=== PATIENT | male | born 1950 | race Caucasian/White ===

== ENCOUNTER 2020-12-05 16:09 | Emergency (ER) | payer MEDICARE, OTHER, SELFPAY ==
--- NOTE | 2020-12-05 16:13 | ED.UPPEXIN ---
HPI - Extremity Injury (Upper) General Chief Complaint: Wound/Laceration Stated Complaint: lt hand middle finger pain Time Seen by Provider: 12/05/20 16:13 Source: patient and RN notes reviewed History of Present Illness HPI narrative: Patient is a 70-year-old male who presents the urgent care with complaints of red infected left middle finger. Patient states he noticed on Friday, got a manicure on Friday, and seems to have gotten worse. Patient states it is now more swollen and is affecting his work due to the pain . Patient denies any use of [id number] medication for pain. Patient denies of any other acute complaints. No acute distress noted. Patient aware of the plan of care. Some parts of this dictation were generated by voice recognition software and may contain typographical and/or grammatical inaccuracies. Related Data Allergies Allergy/AdvReac Type Severity Reaction Status Date / Time No Known Allergies Allergy Verified 12/05/20 16:23 Review of Systems Review of Systems: Narrative: CONSTITUTIONAL: Denies fever, chills, or sweats. EYES: Denies visual changes, redness, or discharge. ENT: Denies rhinorrhea, congestion, sore throat, or otalgia. CARDIOVASCULAR: Denies chest pain, palpitations, or edema. RESPIRATORY: Denies cough or dyspnea. GASTROINTESTINAL: Denies abdominal pain, nausea, vomiting, or diarrhea. GENITOURINARY: Denies dysuria or hematuria. SKIN: Reports of pain and swelling to the nailbed of the left middle finger MUSCULOSKELETAL: Denies back pain, joint pain, or myalgia. NEUROLOGIC: Denies headache, numbness, or weakness. All other systems reviewed are negative, except as documented in HPI. PMFSH Comments At the time of my signature, I reviewed and agree with the nursing past medical, surgical, social, and family history. There is no relevant family history pertinent to the patient complaint. Exam Narrative: Exam Narrative: GENERAL: This is a well-nourished, well-developed patient, in no apparent distress. HEAD: normocephalic, atraumatic. EYES: PERRL. Sclera clear/white. Vision is grossly intact. EARS: External ears normal NOSE: External nose normal with no obvious nasal discharge, nares without redness, no rhinorrhea. THROAT: Mucous membranes moist NECK: Neck supple SKIN: Very mild erythemic paronychia noted to the radial aspect of the left middle digit. NEURO: awake, alert, and oriented to person, place and time. There were no obvious focal neurologic abnormalities. EXTREMITIES: No clubbing, cyanosis, or edema. Course Vital Signs Vital signs: Vital Signs Temperature 98.5 F 12/05/20 16:19 Pulse Rate 68 12/05/20 16:19 Respiratory Rate 16 12/05/20 16:19 Blood Pressure 132/75 12/05/20 16:19 Pulse Oximetry 100 12/05/20 16:19 Temperature 98.5 F 12/05/20 16:19 Pulse Rate 68 12/05/20 16:19 Respiratory Rate 16 12/05/20 16:19 Blood Pressure 132/75 12/05/20 16:19 Pulse Oximetry 100 12/05/20 16:19 Reviewed MDM - Extremity Injury (Upper) MDM Narrative Medical decision making narrative: Advised the patient to complete oral antibiotic regimen as prescribed. Soak the finger in warm water or use a warm compress for comfort. May use Tylenol as needed for pain. Be sure to eat and drink with the medication. If the area does happen to open/drain?use [id number] triple antibiotic ointment such as Neosporin and a bandage. If you develop any increase in pain associated with swelling or streaking up the hand/finger?go to the ER. Follow-up with your PCP within 2 to 5 days or for worsening symptoms or failure to improve. Differential Diagnosis Differential diagnosis: Likely finger sprain and other (Ingrown fingernail, cellulitis) Critical Care Time Critical Care Time Critical Care Time: No Discharge Plan Discharge Clinical Impression: Paronychia of finger of left hand Patient Disposition: Home, Self-Care Condition: Stable Instructions: Antibiotic
[2020-12-05 16:19] VITALS: BP 132/75; PULSE 68; RESP 16; TEMP 36.9; O2SAT 100
== END 2020-12-05 16:36 | disposition home or self-care (01) ==
PROVIDERS: Emergency Provider Nurse Practitioner Family
DX: L03.012 Cellulitis of left finger (principal)
CPT/HCPCS: 99213; G0463

== ENCOUNTER 2020-12-09 15:38 | Emergency (ER) | payer MEDICARE, OTHER, SELFPAY ==
[2020-12-09 15:50] VITALS: BP 112/60; PULSE 68; RESP 16; TEMP 37; O2SAT 99
--- NOTE | 2020-12-09 16:14 | ED.SKABFB ---
HPI - Skin/Abscess/Foreign Bdy General Chief complaint: Extremity Problem,Nontraumatic Stated complaint: finger pain Source: patient Mode of arrival: ambulatory Limitations: no limitations History of Present Illness HPI narrative: Patient is here with increased pain, redness and swelling to left middle finger. Patient was seen approximately 2 days ago and diagnosed with a paronychia and started on doxycycline at this time. Patient reports that wound is having increased swelling, pain and appears to have yellow area surrounding nailbed without drainage. He denies all other complaints. MD complaint: other (Paronychia) Related Data Allergies Allergy/AdvReac Type Severity Reaction Status Date / Time No Known Allergies Allergy Verified 12/05/20 16:23 Review of Systems Review of Systems: Narrative: CONSTITUTIONAL: Denies fever, chills, or sweats. EYES: Denies visual changes, redness, or discharge. ENT: Denies rhinorrhea, congestion, sore throat, or otalgia. CARDIOVASCULAR: Denies chest pain, palpitations, or edema. RESPIRATORY: Denies cough or dyspnea. GASTROINTESTINAL: Denies abdominal pain, nausea, vomiting, or diarrhea. GENITOURINARY: Denies dysuria or hematuria. SKIN: Pain and swelling to left middle finger MUSCULOSKELETAL: Denies back pain, joint pain, or myalgia. NEUROLOGIC: Denies headache, numbness, dizziness, or weakness. PSYCHIATRIC: Denies anxiety or depression. [facility] Social History Social History (Updated 12/09/20 @ 17:10 by MARCUS Álvarez) Smoking status: Never smoker Alcohol intake: never Substance use: never Living arrangements: with family Occupation/Education: occupation Comments At the time of signature, I have reviewed and agree with nursing past medical, surgical, social, and family history unless otherwise noted. Please see nursing chart for further information. There is no relevant family history pertinent to the presenting complaint. Exam Narrative: Exam Narrative: GENERAL: Well-appearing, well-nourished, and in no acute distress. HEAD: Normocephalic, atraumatic. EYES: EOMI. No redness or drainage. Conjunctiva are normal. ENT: Mucous membranes pink and moist. Nares clear. No rhinorrhea. TMs normal bilaterally. Throat normal. Uvula midline. NECK: AROM. Supple. No lymphadenopathy. CHEST: No respiratory distress. Clear to auscultation. HEART: Regular rate and rhythm. No murmur appreciated. Normal peripheral pulses. GI: Soft, nontender without rebound, or guarding. No distention. Bowel sounds normal in all quadrants. MUSCULOSKELETAL: No bony tenderness. EXTREMITIES: Normal range of motion. No edema. SKIN: Large paronychia noted to left middle finger with surrounding cellulitis NEURO: No focal deficits. Alert and oriented x3. Gait steady. PSYCH: Normal affect. No signs of depression or anxiety. Course Vital Signs Vital signs: Vital Signs Temperature 37.0 C 12/09/20 15:50 Pulse Rate 68 12/09/20 15:50 Respiratory Rate 16 12/09/20 15:50 Blood Pressure 112/60 12/09/20 15:50 Pulse Oximetry 99 12/09/20 15:50 Temperature 37.0 C 12/09/20 15:50 Pulse Rate 68 12/09/20 15:50 Respiratory Rate 16 12/09/20 15:50 Blood Pressure 112/60 12/09/20 15:50 Pulse Oximetry 99 12/09/20 15:50 Reviewed Procedures Abscess I/D hand: Date of Incision: 12/09/20 Time of Incision: 16:30 Side (if applicable): left Technique: needle aspiration Amount of fluid expressed (mL): 2 Irrigation: No Abcess I&D Additional Comments: Paronychia drained from left middle digit. Needle aspiration completed with 22-gauge needle, approximately 2mL of pus drained MDM - Skin/Abscess/Foreign Bdy MDM Narrative Medical decision making narrative: Paronychia drained from left middle digit. Patient started on cephalexin at this time. Doxycycline stopped. Patient to continue soaking finger at home as directed. Bactroban ointment to be
== END 2020-12-09 16:39 | disposition home or self-care (01) ==
PROVIDERS: Emergency Provider Nurse Practitioner
DX: L03.012 Cellulitis of left finger (principal); M19.90 Unspecified osteoarthritis, unspecified site
CPT/HCPCS: 10160; 99213; G0463